=== PATIENT | female | born 1955 | race Caucasian/White ===

== ENCOUNTER → 2017-01-22 | Outpatient (CLI) | payer BC ==
[~2017-01-22] MED LIST: EZET10TA3 PO; METO50TA16 PO; OMEG-135 PO; SERT100T PO
--- NOTE | 2017-01-22 16:50 | RADRPT ---
PROCEDURE: XR Left Hip and pelvis. CLINICAL INDICATION: Left hip pain. Pelvic pain. TECHNIQUE: Two views. Frontal pelvis and lateral left hip. COMPARISON: 08/01/2015. FINDINGS: There are bilateral total hip arthroplasties. These appear satisfactory with no fracture, dislocati on, or loosening. There is no lytic lesion. There is a benign calcification in the left side of th e pelvis. The sacroiliac joints are unremarkable. IMPRESSION: 1. Satisfactory postoperative appearance of both hips. RPTAT: QQ .Russell Gaitan MD, MD Date Time Electronically viewed and signed by .Russell Gaitan MD, MD on 01/22/2017 16:49 .R/
--- NOTE | 2017-01-23 20:06 | HKNOTE ---
DATE OF SERVICE: 01/22/2017 MAIN COMPLAINT: Pain in the left hip. HISTORY OF MAIN COMPLAINT: The patient is a 61-year-old female who recently went on a vacation to [place]. While she was in one of the hotels, she tripped on a telephone line and landed on her left hi p. The patient has previously had bilateral hip replacements which were performed by me. She has n ot had any trouble with either hip until now. Since the fall, she has had some pain over the left g reater trochanter. She has no symptoms whatsoever in the right hip. For the remainder of her history and medications and systems review, please see the written notes in the chart. PHYSICAL EXAMINATION: GENERAL: A fit-looking, but overweight 61-year-old female. VITAL SIGNS: Height 5 feet 3 inches, weight 174 pounds, blood pressure 125/55, temperature 98.3. GAIT: Patient's gait is normal. She walks without a walking aid. EXAMINATION OF THE LEFT HIP: A full range of motion without pain. No tenderness anywhere around th e hip. No external bruising or any other sign of injury. EXAMINATION OF THE RIGHT HIP: A full range of motion without pain. IMAGING: Plain x-rays of the pelvis and left hip were obtained today, and the hips were reviewed. The left hip shows a perfect hip replacement without any evidence of any underlying problem. The ri ght hip shows a perfect hip replacement with potentially what may be some lytic change around the ac etabular component. This was shown to the patient. She was advised that it might cause her trouble in the future. She will return again in 6 months' time for x-ray of the right hip. No treatment is recommended. Dictated By: ISAIAH GAY/ANUJA Conf#: [id number] DID#: [id number]
== END | disposition home or self-care (01) ==
LOC: HKI 15:32
DX: Z47.1 Aftercare following joint replacement surgery (principal); Z96.643 Presence of artificial hip joint, bilateral
CPT/HCPCS: 73502; G0463

== ENCOUNTER → 2018-08-24 | Outpatient (CLI) | END | disposition home or self-care (01) ==